=== PATIENT | female | born 1995 | race Caucasian/White ===

== ENCOUNTER 2017-02-22 18:02 | Emergency (ER) | payer OTHER ==
[2017-02-22 18:11] VITALS: BP 114/63
--- NOTE | 2017-02-22 18:56 | RAD ---
INDICATION: 2 weeks of persistent cough. COMPARISON: There are no prior studies available for comparison. TECHNIQUE: Dual-energy PA and lateral views of the chest were obtained. FINDINGS: The heart is within normal limits in size. Mediastinal and hilar contours appear within normal limits. The lungs are clear. No pleural effusion is present. IMPRESSION: NO EVIDENCE FOR ACTIVE CARDIOPULMONARY DISEASE.
--- NOTE | 2017-02-22 19:16 | UC ---
Respiratory Complaint HPI - HPI Summary HPI Summary: TWO WEEKS OF COUGH AND CHEST CONGESTION. INTERMITTENT LOW GRADE FEVER. HISTORY OF PNEUMONIA. NO CHEST PAIN. NO RECENT TRAVEL. NONSMOKER. NO ORAL CONTRACEPTION. - History of Current Complaint Chief Complaint: UCRespiratory Stated Complaint: COUGH Time Seen by Provider: 02/22/17 18:22 Hx Obtained From: Patient Hx Last Menstrual Period: one week ago Onset/Duration: Gradual Onset, Lasting Weeks, Still Present Timing: Intermittent Episodes Severity Initially: Mild Severity Currently: Mild Character: Cough: Nonproductive Associated Signs And Symptoms: Positive: Fever, URI. Negative: Chills, Wheezing , Hemoptysis, Dizziness, Calf Pain, Calf Swelling, Nasal Congestion, Hoarseness , Sinus Discomfort - Risk Factors Cardiac Risk Factors: Negative Pseudomonas Risk Factors: Negative Tuberculosis Risk Factors: Negative - Allergies/Home Medications Allergies/Adverse Reactions: Allergies Allergy/AdvReac Type Severity Reaction Status Date / Time Amoxicillin [From Augmentin] Allergy Anaphylatic Verified 02/22/17 18:12 Shock Clavulanic Acid Allergy Anaphylatic Verified 02/22/17 18:12 [From Augmentin] Shock Hydrocodone Allergy Hives Verified 02/22/17 18:12 Morphine Allergy Vomiting Verified 02/22/17 18:12 Oxycodone Allergy Hives Verified 02/22/17 18:13 amoxicillin Allergy Anaphylatic Uncoded 02/22/17 18:12 Shock Home Medications: Home Medications Norethindrone & Eth Estradiol [Ortho-Novum ] 02/22/17 [History] PMH/Surg Hx/FS Hx/Imm Hx Previously Healthy: Yes - Surgical History Surgical History: Yes Surgery Procedure, Year, and Place: ACL Right knee. [place] teeth. Ear tubes - Family History Known Family History: Negative: Respiratory Disease - Social History Occupation: Student Lives: With Family Alcohol Use: Occasionally Substance Use Type: None Smoking Status (MU): Never Smoked Tobacco Review of Systems Constitutional: Negative Skin: Negative Eyes: Negative ENT: Negative Respiratory: Cough Cardiovascular: Negative Gastrointestinal: Negative Genitourinary: Negative Motor: Negative Neurovascular: Negative Musculoskeletal: Negative Neurological: Negative Psychological: Negative All Other Systems Reviewed And Are Negative: Yes Physical Exam Triage Information Reviewed: Yes Appearance: Well-Appearing, No Pain Distress, Well-Nourished Vital Signs: Initial Vital Signs Temp 98.0 F 02/22/17 18:07 Pulse 68 02/22/17 18:07 Resp 12 02/22/17 18:07 BP 114/63 02/22/17 18:07 Pulse Ox 99 02/22/17 18:07 Vital Signs Reviewed: Yes Eye Exam: Normal ENT Exam: Normal ENT: Positive: Normal ENT inspection, Hearing grossly normal, TMs normal Dental Exam: Normal Neck exam: Normal Neck: Positive: Supple, Nontender Respiratory Exam: Other - COUGH Respiratory: Positive: Chest non-tender, Lungs clear, Normal breath sounds, No respiratory distress, No accessory muscle use Cardiovascular Exam: Normal Cardiovascular: Positive: RRR, No Murmur Abdominal Exam: Normal Abdomen Description: Positive: Nontender, No Organomegaly Musculoskeletal Exam: Normal Neurological Exam: Normal Psychological Exam: Normal Skin Exam: Normal UC Diagnostic Evaluation - Laboratory O2 Sat by Pulse Oximetry: 99 Respiratory Course/Dx - Differential Dx/Diagnosis Differential Diagnosis/HQI/PQRI: Bronchitis, Laryngitis, Sinusitis Provider Diagnoses: UPPER RESPIRATORY INFECTION Discharge - Discharge Plan Condition: Stable Disposition: HOME Prescriptions: Benzonatate CAP* [Tessalon 100 MG CAP*] 100 mg PO TID PRN #15 cap PRN Reason: Cough Patient Education Materials: Upper Respiratory Infection (ED), Acute Cough (ED) Referrals: [facility] [Outside] [facility] @ [Outside] Additional Instructions: TODAY YOUR CHEST XRAY SHOWED NO ACTIVE DISEASE. PLEASE SEEK EVALUATION AT THE EMERGENCY DEPARTMENT IF YOU DEVELOP CHEST PAIN, CALF PAIN, OR SHORTNESS OF BREATH. PLEASE MONITOR YOUR TEMPERATURES.
== END 2017-02-22 19:15 | disposition home or self-care (01) ==
LOC: UCEAST 18:02
DX: J06.9 Acute upper respiratory infection, unspecified (principal)
CPT/HCPCS: 71020; 99212; G0463

== ENCOUNTER 2017-05-10 16:33 | Emergency (ER) | payer OTHER ==
[2017-05-10] MEDS ORDERED: NS 0.9% 1000 ML* 1,000 ML IV ONE (18:49)
[2017-05-10 19:20] LABS: Hematocrit 40 % (35-47); Hemoglobin 13.5 g/dl (12.0-16.0); Mean Corpuscular HGB Conc 34 g/dl (31-36); Mean Corpuscular Hemoglobin 30 pg (27-31); Mean Corpuscular Volume 88 fL (80-97); Mean Platelet Volume 8 um3 (7.4-10.4); Red Blood Count 4.48 10^6/ul (4.0-5.4); Red Cell Distribution Width 13 % (10.5-15); White Blood Count 8.8 10^3/ul (3.5-10.8)
[2017-05-10 19:35] LABS: ALT 14 U/L (7-52); AST 22 U/L (13-39); Albumin 4.1 g/dL (3.2-5.2); Alkaline Phosphatase 51 U/L (34-104); Anion Gap 7 mmol/L (2-11); BUN/Creatinine Ratio 17.9 (8-20); Blood Urea Nitrogen 14 mg/dL (6-24); C Reactive Protein < 1.00 mg/L (< 5.00); CO2 Carbon Dioxide 25 mmol/L (22-32); Calcium 9.2 mg/dL (8.6-10.3); Chloride 104 mmol/L (101-111); EGFR African American 121.1 (>60); EGFR Non-African American 94.2 (>60); Glucose 89 mg/dL (70-100); Lipase 16 U/L (11.0-82.0); Potassium 3.7 mmol/L (3.5-5.0); Sodium 136 mmol/L (133-145); Total Protein 7.1 g/dL (6.4-8.9)
[2017-05-10] MEDS ORDERED: Iohexol 300* (CONTRAST) 10 ML SDV IV ONE (23:48)
[2017-05-11 00:15] LABS: Urine Bilirubin Negative (Negative); Urine Glucose Negative (Negative); Urine Nitrite Negative (Negative)
[2017-05-11 03:02] VITALS: BP 118/65
--- NOTE | 2017-05-11 03:53 | ED ---
Estela Dejesus Rebecca, scribed for Cierra Rangeluel on 05/11/17 at 0045 . Abdominal Pain/Female - HPI Summary HPI Summary: Pt is a 22 y/o F who presents to ED c/o abdominal pain. Pain began last night and is discrete to the RLQ without radiation. Pain is currently moderate, ranked 4/10. Sx aggravated and alleviated by nothing. Additionally c/o nausea, diarrhea, vaginal discharge and low-grade fever, last night. Denies vomiting and vaginal bleeding. - History of Current Complaint Chief Complaint: EDAbdPain Stated Complaint: RT SIDED ABD PAIN/NAUSEA Time Seen by Provider: 05/10/17 19:32 Hx Obtained From: Patient Hx Last Menstrual Period: one week ago Onset/Duration: Lasting Days - Started last night, Still Present Severity Currently: Moderate Pain Intensity: 4 Pain Scale Used: 0-10 Numeric Location: Discrete At: RLQ Aggravating Factor(s): Nothing Alleviating Factor(s): Nothing Associated Signs and Symptoms: Positive: Fever - low-grade, Nausea, Diarrhea. Negative: Vaginal Bleeding, Vomiting Allergies/Adverse Reactions: Allergies Allergy/AdvReac Type Severity Reaction Status Date / Time Amoxicillin [From Augmentin] Allergy Anaphylatic Verified 05/10/17 16:51 Shock Clavulanic Acid Allergy Anaphylatic Verified 05/10/17 16:51 [From Augmentin] Shock Hydrocodone Allergy Hives Verified 05/10/17 16:51 Morphine Allergy Vomiting Verified 05/10/17 16:51 Oxycodone Allergy Hives Verified 05/10/17 16:51 amoxicillin Allergy Anaphylatic Uncoded 02/22/17 18:12 Shock PMH/Surg Hx/FS Hx/Imm Hx Endocrine/Hematology History: Denies: Hx Diabetes Cardiovascular History: Denies: Hx Hypertension Respiratory History: Reports: Other Respiratory Problems/Disorders - HX PNEUMONIA - Surgical History Surgery Procedure, Year, and Place: ACL Right knee. [place] teeth. Ear tubes Infectious Disease History: No Infectious Disease History: Denies: Traveled Outside the [place] in Last 30 Days - Family History Known Family History: Negative: Respiratory Disease - Social History Alcohol Use: Occasionally Substance Use Type: Reports: None Smoking Status (MU): Never Smoked Tobacco Review of Systems Positive: Fever - Low-grade Positive: Abdominal Pain - RLQ, Diarrhea, Nausea. Negative: Vomiting Positive: discharge - Vaginal, other - NEGATIVE: Vaginal bleeding All Other Systems Reviewed And Are Negative: Yes Physical Exam - Summary Physical Exam Summary: Appearance: Well appearing, no pain distress Skin: warm, dry, reflects adequate perfusion Head/face: normal Eyes: EOMI, MARISSA ENT: normal Neck: supple, nontender Respiratory: CTA, breath sounds present Cardiovascular: RRR, pulses symmetrical Abdomen: tenderness in the RLQ, soft Bowel: present Musculoskeletal: normal, strength/ROM intact Neuro: normal, sensory motor intact, A&Ox3 Triage Information Reviewed: Yes Vital Signs On Initial Exam: Initial Vitals Temp Pulse Resp BP Pulse Ox 97.8 F 84 18 123/71 100 05/10/17 16:35 05/10/17 16:35 05/10/17 16:35 05/10/17 16:35 05/10/17 16:35 Vital Signs Reviewed: Yes - [place] Coma Scale Coma Scale Total: 15 Diagnostics - Vital Signs Vital Signs Temp Pulse Resp BP Pulse Ox 05/10/17 18:35 98.3 F 93 16 133/93 100 05/10/17 16:35 97.8 F 84 18 123/71 100 - Laboratory Lab Results: Lab Results 05/10/17 05/10/17 05/10/17 Range/Units 19:10 19:10 19:10 WBC 8.8 (3.5-10.8) 10^3/ul RBC 4.48 (4.0-5.4) 10^6/ul Hgb 13.5 (12.0-16.0) g/dl Hct 40 (35-47) % MCV 88 (80-97) fL MCH 30 (27-31) pg MCHC 34 (31-36) g/dl RDW 13 (10.5-15) % Plt Count 208 (150-450) 10^3/ul MPV 8 (7.4-10.4) um3 Neut % (Auto) 70.3 (38-83) % Lymph % (Auto) 21.0 L (25-47) % [place] % (Auto) 7.3 (1-9) % Eos % (Auto) 1.2 (0-6) % Baso % (Auto) 0.2 (0-2) % Absolute Neuts (auto) 6.2 (1.5-7.7) 10^3/ul Absolute Lymphs (auto) 1.8 (1.0-4.8) 10^3/ul Absolute Monos (auto) 0.6 (0-0.8) 10^3/ul Absolute Eos (auto) 0.1 (0-0.6) 10^3/ul Absolute Basos (auto) 0 (0-0.2) 10^3/ul Absolute Nucleated RBC 0 10^3/ul Nucleated RBC % 0 Sodium 136 (133-145) mmol/L Potassium 3.7 (3.5-5.0) mmol/L Chloride 104 (101-111) mmol/L Carbon Dioxide 25 (22-32) mmol/L Anion Gap 7 (2-11) mmol/L BUN 14 (6-24) mg/dL Creatinine 0.78 (0.51-0.95) mg/dL Est GFR ( Amer) 121.1 (>60) Est GFR (Non-Af Amer) 94.2 (>60) BUN/Creatinine Ratio 17.9 (8-20) Glucose 89 (70-100) mg/dL Lactic Acid 0.7 (0.5-2.0) mmol/L Calcium 9.2 (8.6-10.3) mg/dL Total Bilirubin 0.50 (0.2-1.0) mg/dL AST 22 (13-39) U/L ALT 14 (7-52) U/L Alkaline Phosphatase 51 (34-104) U/L C-Reactive Protein < 1.00 (< 5.00) mg/L Total Protein 7.1 (6.4-8.9) g/dL Albumin 4.1 (3.2-5.2) g/dL Globulin 3.0 (2-4) g/dL Albumin/Globulin Ratio 1.4 (1-3) Lipase 16 (11.0-82.0) U/L Beta HCG, Quant < 0.60 mIU/mL Result Diagrams: 05/10/17 19:10 05/10/17 19:10 Lab Statement: Any lab studies that have been ordered have been reviewed, and results considered in the medical decision making process. - CT CT Abd/Pel CT Interpretation Completed By: Radiologist - 3.4 cm right ovarian cyst. Small physiologic free fluid cul-de-sac. No bowel obstruction, colitis, or suresh air. Normal appendix filled with air. Unremarkable pancreas, kidneys and gallbladder. ED phsyician reviewed radiology report and agrees. - Ultrasound No standard instances Ultrasound Interpretation Completed By: Radiologist - Pelvis: No ovarian tosion. Color flow with appropriate arterial and venous waveforms. 3.3 cm right ovarian cyst. Small phsyiologic free fluid cul-de-sac. Normal uterus. Endometrial stripe complex 8 mm thick. ED phsyician reviewed radiology report and agrees. Re-Evaluation - Re-Evaluation First Eval Re-Evaluation Time: 01:11 Comment: Discussed CT results with the pt. Second Eval Re-Evaluation Time: 02:40 Change: Improved Comment: Discussed US results and D/C plan. Pt is feeling much better. Abdominal Pain Fem Course/Dx - Course Course Of Treatment: Pt is a 22 y/o F who presents to ED c/o abdominal pain. Pain began last night and is discrete to the RLQ without radiation. Pain is currently moderate, ranked 4/10. Sx aggravated and alleviated by nothing. Additionally c/o nausea, diarrhea, vaginal discharge and low-grade fever, last night. Denies vomiting and vaginal bleeding. UA negative for UTI. CT Abd/Pel and Pelvic US reveal an ovarian cyst. In the ED course, pt received fluids which improved sx. Pt will be D/C to home with Dx of ovarian cyst and abdominal pain with Rx for Naproxem and a follow up with her PCP and [facility]. She understands and agrees. Allergies noted. Pt medications reviewed. - Diagnoses Provider Diagnoses: Abdominal pain, Ovarian cyst Discharge - Discharge Plan Condition: Stable Disposition: HOME Prescriptions: Naproxen [Naproxen 500 mg] 500 mg PO Q8H PRN #20 tab MDD 3 PRN Reason: Pain Patient Education Materials: Ovarian Cyst (ED), Acute Abdominal Pain (ED) Referrals: [facility] [Primary Care Provider] - Tr Contreras MD [Medical Doctor] - 3 Days The documentation as recorded by the Estela lozano Rebecca accurately reflects the service I personally performed and the decisions made by me, Nicola Rangel.
--- NOTE | 2017-05-11 07:51 | RAD ---
CLINICAL HISTORY: Right lower quadrant pain COMPARISON: None TECHNIQUE: Multiple contiguous axial CT scans were obtained of the abdomen and pelvis after the administration of intravenous contrast. Coronal and sagittal multiplanar reformations are submitted for review. Oral contrast was administered. Delayed images were obtained through the abdomen and pelvis. FINDINGS: LUNG BASES: The lung bases are clear. LIVER: The liver is normal in shape, size, contour, and attenuation. BILE DUCTS: There is no intrahepatic or extrahepatic biliary dilatation. GALLBLADDER: The gallbladder is normal, without pericholecystic inflammatory change. PANCREAS: The pancreas is normal, without mass or ductal dilatation. SPLEEN: Normal in size and appearance. UPPER GI TRACT: Evaluation of the gastrointestinal tract is limited by incomplete gastric distention. The upper GI tract is unremarkable. SMALL BOWEL AND MESENTERY: The small bowel is normal in contour, course, and caliber. There is no obstruction or dilatation. COLON: The colon is normal in contour, course, caliber. There is no pericolonic inflammatory change. There is a tubular, vermiform, hollow viscus that is blind ending, and originates from the cecum, consistent with a normal appendix. There is no periappendiceal inflammatory change. This is best seen on coronal images 32 through 37 ADRENALS: Normal bilaterally. KIDNEYS: The kidneys are normal in shape, size, contour, and axis. There is no hydronephrosis or nephrolithiasis. BLADDER: The bladder is smooth in contour. PELVIC ORGANS: There is a 3.4 cm right ovarian cyst. There is a small free fluid within the pelvis. This may BE physiologic within a relatively female. AORTA: The aorta is normal. IVC: Unremarkable LYMPH NODES: There is no lymphadenopathy by size criteria. ABDOMINAL WALL: There is no evidence for abdominal wall hernia. BONES AND SOFT TISSUES: Incidentally noted is a limbus vertebral body of L3. OTHER: None IMPRESSION: 1. NORMAL APPENDIX. 2. 3.4 CM RIGHT OVARIAN CYST.
--- NOTE | 2017-05-11 08:38 | RAD ---
HISTORY: Right sided pain, rule out torsion COMPARISONS: None TECHNIQUE: Multiple transverse and longitudinal ultrasound images were obtained of the pelvis using grayscale, color Doppler, and spectral Doppler imaging using the transabdominal transducer. FINDINGS: UTERUS: The uterus measures 7.9 x 3.5 x 4.6 cm. The uterus is normal in shape, size, contour, and echotexture. ENDOMETRIUM: The endometrial stripe is smooth. The endometrium measures 0.8 cm in thickness. CUL-DE-SAC: There is no free fluid within the cul-de-sac. RIGHT OVARY: The right ovary measures 4.2 x 2.3 x 4.4 cm. There is a 3.2 x 3.3 x 2 cm simple right ovarian cyst . Normal arterial and venous waveforms are identifiable within the ovary on spectral Doppler imaging. LEFT OVARY: The left ovary measures 4.3 x 2 x 2.6 cm. Normal arterial and venous waveforms are identifiable within the ovary on spectral Doppler imaging. BLADDER: The visualized bladder is unremarkable. OTHER: None IMPRESSION: 1. NO SONOGRAPHIC FEATURES OF TORSION. PLEASE NOTE THAT PARTIAL OR INTERMITTENT TORSION MAY BE SONOGRAPHICALLY NORMAL. 2. 3.3 CENTIMETER SIMPLE RIGHT OVARIAN CYST.
== END 2017-05-11 03:05 | disposition home or self-care (01) ==
LOC: ED 16:33
DX: R10.31 Right lower quadrant pain (principal); N83.291 Other ovarian cyst, right side; Z88.5 Allergy status to narcotic agent; Z88.0 Allergy status to penicillin
CPT/HCPCS: 36415; 74177; 76856; 80053; 81003; 83605; 83690; 84702; 85025; 86140; Q9967

== ENCOUNTER 2017-07-07 10:18 | Emergency (ER) | payer BC, OTHER ==
[2017-07-07 10:27] VITALS: BP 130/70
--- NOTE | 2017-07-07 10:50 | ED ---
Throat Pain/Nasal Congestion - HPI Summary HPI Summary: 22F presents with swelling around right eye from fall on Friday. She states she feel off her boyfriends back and landed on her face on the concerte. She states that if she looks a certain way she has double vision. She is not on blood thinners. She has full ROM of eyes. She denies any blood from nares. She has moderate headache that is improved with advil. She admits to nausea but denies any vomiting. She denies any LOC but says that she saw stars. She admits to dizziness. She has been feeling tired. She states sometimes she gets tingling near right eye. She admits to photophobia and some difficulty concentrating. She was sent by [facility] for imaging of face. She had a few drinks when this occurred. - History of Current Complaint Chief Complaint: EDEyeProblem Time Seen by Provider: 07/07/17 10:27 - Allergies/Home Medications Allergies/Adverse Reactions: Allergies Allergy/AdvReac Type Severity Reaction Status Date / Time Amoxicillin [From Augmentin] Allergy Anaphylatic Verified 05/10/17 16:51 Shock Clavulanic Acid Allergy Anaphylatic Verified 05/10/17 16:51 [From Augmentin] Shock Hydrocodone Allergy Hives Verified 05/10/17 16:51 Morphine Allergy Vomiting Verified 05/10/17 16:51 Oxycodone Allergy Hives Verified 05/10/17 16:51 amoxicillin Allergy Anaphylatic Uncoded 02/22/17 18:12 Shock PMH/Surg Hx/FS Hx/Imm Hx Endocrine/Hematology History: Denies: Hx Diabetes Cardiovascular History: Denies: Hx Hypertension Respiratory History: Reports: Other Respiratory Problems/Disorders - HX PNEUMONIA History: Denies: Hx Dialysis, Hx Renal Disease - Surgical History Surgery Procedure, Year, and Place: ACL Right knee. [place] teeth. Ear tubes Infectious Disease History: No Infectious Disease History: Denies: Traveled Outside the [place] in Last 30 Days - Family History Known Family History: Negative: Respiratory Disease - Social History Alcohol Use: Occasionally Substance Use Type: Reports: None Smoking Status (MU): Never Smoked Tobacco Review of Systems Negative: Fever Negative: Chest Pain Negative: Shortness Of Breath Positive: Nausea Positive: Bruising Positive: Headache All Other Systems Reviewed And Are Negative: Yes Physical Exam Triage Information Reviewed: Yes Vital Signs On Initial Exam: Initial Vitals Temp Pulse Resp BP Pulse Ox 97.8 F 60 16 130/70 98 07/07/17 10:23 07/07/17 10:23 07/07/17 10:23 07/07/17 10:23 07/07/17 10:23 Vital Signs Reviewed: Yes Appearance: Positive: Well-Appearing Skin: Positive: Warm, Dry Head/Face: Positive: Other - ecchymosis around right eye, no step off, rivera sign Eyes: Positive: Normal, EOMI, MARISSA, Conjunctiva Clear ENT: Positive: Normal ENT inspection, Pharynx normal, TMs normal Respiratory/Lung Sounds: Positive: Clear to Auscultation, Breath Sounds Present Cardiovascular: Positive: Normal, RRR Abdomen Description: Positive: Nontender, Soft Bowel Sounds: Positive: Present Neurological: Positive: Sensory/Motor Intact, Alert, Oriented to Person Place, Time, CN Intact II-III, Heel to Toe, Finger to Nose, Other - rapid alternating movements intact Psychiatric: Positive: Normal Diagnostics - Vital Signs Vital Signs Temp Pulse Resp BP Pulse Ox 07/07/17 10:23 97.8 F 60 16 130/70 98 - Laboratory Lab Statement: Any lab studies that have been ordered have been reviewed, and results considered in the medical decision making process. - CT brain CT Interpretation: No Acute Changes CT Interpretation Completed By: Radiologist maxillaryfacial CT Interpretation: No Acute Changes CT Interpretation Completed By: Radiologist EENT Course/Dx - Course Course Of Treatment: 22F presents with swelling around right eye from fall on Friday. She states she feel off her boyfriends back and landed on her face on the concerte. She states that if she looks a certain way she has double vision. She is not on blood thinners. She has full ROM of eyes. She denies any blood from nares. She has moderate headache that is improved with advil. She admits to nausea but denies any vomiting. She denies any LOC but says that she saw stars. She admits to dizziness. She has been feeling tired. She states sometimes she gets tingling near right eye. She admits to photophobia and some difficulty concentrating. She was sent by for imaging of face. She had a few drinks when this occurred. on exam ecchyomosis around right eye. no step off, normal neuro exam. CT brain and face normal. will discharge with follow up with IC as likely has concussion. patient understand and agrees with plan. - Differential Diagnoses Differential Diagnoses: Other - concussion, orbit fracture, contusion - Diagnoses Provider Diagnoses: Head injury, Facial contusion Discharge - Discharge Plan Condition: Good Disposition: HOME Patient Education Materials: Concussion (ED), Facial Contusion (ED) Referrals: [facility] [Primary Care Provider] - Additional Instructions: Place ice on area as needed Take Tylenol or ibuprofen for headache every 6 hours Follow up with IC within 5 days Return to ED if develop vomiting, severe headache, or any new or worsening symptoms
--- NOTE | 2017-07-07 11:18 | RAD ---
HISTORY: Right facial injury, head injury COMPARISONS: None TECHNIQUE: Multiple contiguous axial CT scans were obtained of the head without intravenous contrast. FINDINGS: HEMORRHAGE/INFARCT: There is no hemorrhage or acute infarct. MASSES/SHIFT: There is no mass or shift. EXTRA-AXIAL SPACES: There are no extra-axial fluid collections. SULCI AND VENTRICLES: The sulci and ventricles are normal in size and position for the patient's stated age. CEREBRUM: There are no focal parenchymal abnormalities. BRAINSTEM: There are no focal parenchymal abnormalities. CEREBELLUM: There are no focal parenchymal abnormalities. VESSELS: The vessels are grossly normal. PARANASAL SINUSES: The paranasal sinuses are clear. ORBITS: The orbits are unremarkable. BONES AND SOFT TISSUE: No bone or soft tissue abnormalities are noted. OTHER: None IMPRESSION: NO ACUTE INTRACRANIAL PATHOLOGY.
--- NOTE | 2017-07-07 11:26 | RAD ---
HISTORY: Right-sided facial injury COMPARISONS: None TECHNIQUE: Multiple contiguous axial CT scans were obtained of the face without intravenous contrast, with coronal and sagittal multiplanar reformations. FINDINGS: BONES: There is no displaced fracture or dislocation. The orbital rim is intact. The zygomatic arch is intact. The pterygoid plates are intact. ORBITS: The globes are round. The optic nerves are symmetric. The extraocular musculature is normal. There is no post septal or intraconal inflammatory change. There is no retrobulbar hematoma. PARANASAL SINUSES: The paranasal sinuses are clear. BRAIN AND SOFT TISSUE: Metallic jewelry is noted in relation to the right naris. OTHER: None. IMPRESSION: NO FACIAL FRACTURE
== END 2017-07-07 12:43 | disposition home or self-care (01) ==
LOC: ED 10:18
DX: S09.90XA Unspecified injury of head, initial encounter (principal); S00.83XA Contusion of other part of head, initial encounter; W19.XXXA Unspecified fall, initial encounter; Y93.9 Activity, unspecified; Y92.9 Unspecified place or not applicable
CPT/HCPCS: 70450; 70486; 99282

== ENCOUNTER 2017-08-30 18:15 | Emergency (ER) | payer BC ==
[2017-08-30 20:29] LABS: ABS Basophils 0 10^3/ul (0-0.2); ABS Eosinophils 0.1 10^3/ul (0-0.6); ABS Lymphocytes 1.7 10^3/ul (1.0-4.8); ABS Monocytes 0.6 10^3/ul (0-0.8); ABS Neutrophils 6.6 10^3/ul (1.5-7.7); ABS Nucleated RBC 0 10^3/ul; Eosinophil % 1.3 % (0-6); Hematocrit 41 % (35-47); Hemoglobin 14.1 g/dl (12.0-16.0); Lymphocyte % 18.8 % (25-47); Mean Corpuscular HGB Conc 34 g/dl (31-36); Mean Corpuscular Hemoglobin 30 pg (27-31); Mean Corpuscular Volume 87 fL (80-97); Mean Platelet Volume 9 um3 (7.4-10.4); Nucleated Red Blood Cells % 0.1; Platelet Count 210 10^3/ul (150-450); Red Blood Count 4.68 10^6/ul (4.0-5.4); Red Cell Distribution Width 13 % (10.5-15)
[2017-08-30 20:36] LABS: Urine Appearance Clear; Urine Blood Negative (Negative); Urine Color Yellow; Urine Ketones Negative (Negative); Urine Protein Negative (Negative); Urine Specific Gravity 1.015 (1.010-1.030); Urine Urobilinogen Negative (Negative)
[2017-08-30 20:47] LABS: INR 0.9 (0.77-1.02)
[2017-08-30 20:48] LABS: EGFR Non-African American 88.9 (>60)
--- NOTE | 2017-08-30 20:48 | RAD ---
HISTORY: Head injury 2 months ago, personality changes COMPARISONS: None TECHNIQUE: Multiple contiguous axial CT scans were obtained of the head without intravenous contrast. FINDINGS: HEMORRHAGE/INFARCT: There is no hemorrhage or acute infarct. MASSES/SHIFT: There is no mass or shift. EXTRA-AXIAL SPACES: There are no extra-axial fluid collections. SULCI AND VENTRICLES: The sulci and ventricles are normal in size and position for the patient's stated age. CEREBRUM: There are no focal parenchymal abnormalities. BRAINSTEM: There are no focal parenchymal abnormalities. CEREBELLUM: There are no focal parenchymal abnormalities. VESSELS: The vessels are grossly normal. PARANASAL SINUSES: The paranasal sinuses are clear. ORBITS: The orbits are unremarkable. BONES AND SOFT TISSUE: No bone or soft tissue abnormalities are noted. OTHER: None IMPRESSION: NO ACUTE INTRACRANIAL PATHOLOGY.
[2017-08-30 23:03] VITALS: BP 132/77
--- NOTE | 2017-08-31 05:42 | ED ---
Manuel Dejesus Tecjoon, scribed for Melvin Buck MD on 08/30/17 at 1926 . Psychiatric Complaint - HPI Summary HPI Summary: This patient is a 22 year old female presenting to [facility] accompanied by sales coach with a chief complaint of SI since today. Patient states that she suffered head trauma and a concussion on Jul 06. Patient states that pain remains in right side of head. During the incident, she suffered LOC, headache, vomiting, dizziness. Afterwards, she had memory loss and speech problems. During and after recovery, patient states she has not been feeling right ever since and has had severe mood swings. Patient states she has been feeling hopeless and depressed for the past 2 weeks and had SI today. The pain is rated 6/10 in severity. Symptoms aggravated by nothing. Symptoms alleviated by nothing. Patient denies a plan. - History Of Current Complaint Chief Complaint: EDMentalHealth Time Seen by Provider: 08/30/17 18:55 Hx Obtained From: Patient Hx Last Menstrual Period: 1 month ago Onset/Duration: Sudden Onset, Lasting Weeks - 2 weeks, Still Present, Worse Since - today Timing: Constant Severity Initially: Moderate Severity Currently: Moderate Character: Depressed Aggravating Factor(s): Nothing Alleviating Factor(s): Nothing Has Suicidal: Reports: Thoughts. Denies: With A Plan - Allergies/Home Medications Allergies/Adverse Reactions: Allergies Allergy/AdvReac Type Severity Reaction Status Date / Time Amoxicillin [From Augmentin] Allergy Anaphylatic Verified 05/10/17 16:51 Shock Clavulanic Acid Allergy Anaphylatic Verified 05/10/17 16:51 [From Augmentin] Shock Hydrocodone Allergy Hives Verified 05/10/17 16:51 Morphine Allergy Vomiting Verified 05/10/17 16:51 Oxycodone Allergy Hives Verified 05/10/17 16:51 amoxicillin Allergy Anaphylatic Uncoded 02/22/17 18:12 Shock PMH/Surg Hx/FS Hx/Imm Hx Previously Healthy: Yes Endocrine/Hematology History: Denies: Hx Diabetes Cardiovascular History: Denies: Hx Hypertension Respiratory History: Reports: Other Respiratory Problems/Disorders - HX PNEUMONIA History: Denies: Hx Dialysis, Hx Renal Disease Opthamlomology History: Denies: Hx Legally Blind EENT History: Denies: Hx Deafness - Surgical History Surgery Procedure, Year, and Place: ACL Right knee. [place] teeth. Ear tubes Infectious Disease History: No Infectious Disease History: Denies: Traveled Outside the [place] in Last 30 Days - Family History Known Family History: Negative: Respiratory Disease - Social History Occupation: Student Alcohol Use: Occasionally Hx Substance Use: No Substance Use Type: Reports: None Hx Tobacco Use: No Smoking Status (MU): Never Smoked Tobacco Review of Systems Negative: Fever Neurological: Other - dizziness Positive: Headache, Slurred Speech Positive: Depressed, Other - mood swings All Other Systems Reviewed And Are Negative: Yes Physical Exam - Summary Physical Exam Summary: Appearance: Well appearing, no pain distress Skin: warm, dry, reflects adequate perfusion Head/face: Tenderness in right maxillary area and front forehead without bruising. Eyes: EOMI, MARISSA ENT: normal Neck: supple, non-tender Respiratory: CTA, breath sounds present Cardiovascular: RRR, pulses symmetrical Abdomen: non-tender, soft Bowel: present Musculoskeletal: normal, strength/ROM intact Neuro: normal, sensory motor intact, A&Ox3 Psych: no SI/HI, normal affect Triage Information Reviewed: Yes Vital Signs On Initial Exam: Initial Vitals Temp Pulse Resp BP Pulse Ox 99.1 F 91 19 130/74 98 08/30/17 18:39 08/30/17 18:39 08/30/17 18:39 08/30/17 18:39 08/30/17 18:39 Vital Signs Reviewed: Yes Diagnostics - Vital Signs Vital Signs Temp Pulse Resp BP Pulse Ox 08/30/17 18:39 99.1 F 91 19 130/74 98 - Laboratory Lab Results: Lab Results 08/30/17 08/30/17 08/30/17 Range/Units 20:08 20:08 20:08 WBC 9.0 (3.5-10.8) 10^3/ul RBC 4.68 (4.0-5.4) 10^6/ul Hgb 14.1 (12.0-16.0) g/dl Hct 41 (35-47) % MCV 87 (80-97) fL MCH 30 (27-31) pg MCHC 34 (31-36) g/dl RDW 13 (10.5-15) % Plt Count 210 (150-450) 10^3/ul MPV 9 (7.4-10.4) um3 Neut % (Auto) 73.1 (38-83) % Lymph % (Auto) 18.8 L (25-47) % [place] % (Auto) 6.6 (1-9) % Eos % (Auto) 1.3 (0-6) % Baso % (Auto) 0.2 (0-2) % Absolute Neuts (auto) 6.6 (1.5-7.7) 10^3/ul Absolute Lymphs (auto) 1.7 (1.0-4.8) 10^3/ul Absolute Monos (auto) 0.6 (0-0.8) 10^3/ul Absolute Eos (auto) 0.1 (0-0.6) 10^3/ul Absolute Basos (auto) 0 (0-0.2) 10^3/ul Absolute Nucleated RBC 0 10^3/ul Nucleated RBC % 0.1 INR (Anticoag Therapy) 0.90 (0.77-1.02) APTT 27.2 (26.0-36.3) seconds Sodium 137 (133-145) mmol/L Potassium 3.6 (3.5-5.0) mmol/L Chloride 104 (101-111) mmol/L Carbon Dioxide 25 (22-32) mmol/L Anion Gap 8 (2-11) mmol/L BUN 14 (6-24) mg/dL Creatinine 0.82 (0.51-0.95) mg/dL Est GFR ( Amer) 114.3 (>60) Est GFR (Non-Af Amer) 88.9 (>60) BUN/Creatinine Ratio 17.1 (8-20) Glucose 82 (70-100) mg/dL Lactic Acid (0.5-2.0) mmol/L Calcium 9.6 (8.6-10.3) mg/dL Total Bilirubin 0.40 (0.2-1.0) mg/dL AST 17 (13-39) U/L ALT 10 (7-52) U/L Alkaline Phosphatase 56 (34-104) U/L Total Protein 7.3 (6.4-8.9) g/dL Albumin 4.2 (3.2-5.2) g/dL Globulin 3.1 (2-4) g/dL Albumin/Globulin Ratio 1.4 (1-3) TSH 2.14 (0.34-5.60) mcIU/mL Beta HCG, Quant < 0.60 mIU/mL Urine Color Urine Appearance Urine pH (5-9) Ur Specific [place] (1.010-1.030) Urine Protein (Negative) Urine Ketones (Negative) Urine Blood (Negative) Urine Nitrate (Negative) Urine Bilirubin (Negative) Urine Urobilinogen (Negative) Ur Leukocyte Esterase (Negative) Urine WBC (Auto) (Absent) Urine RBC (Auto) (Absent) Ur Squamous Epith Cells (Absent) Urine Bacteria (Absent) Urine Glucose (Negative) Salicylates < 2.50 (<30) mg/dL Urine Opiates Screen (None Detect) Acetaminophen < 15 mcg/mL Ur Barbiturates Screen (None Detect) Ur Phencyclidine Scrn (None Detect) Ur Amphetamines Screen (None Detect) U Benzodiazepines Scrn (None Detect) Urine Cocaine Screen (None Detect) U Cannabinoids Screen (None Detect) Serum Alcohol < 10 (<10) mg/dL 08/30/17 08/30/17 08/30/17 Range/Units 20:08 20:08 20:08 WBC (3.5-10.8) 10^3/ul RBC (4.0-5.4) 10^6/ul Hgb (12.0-16.0) g/dl Hct (35-47) % MCV (80-97) fL MCH (27-31) pg MCHC (31-36) g/dl RDW (10.5-15) % Plt Count (150-450) 10^3/ul MPV (7.4-10.4) um3 Neut % (Auto) (38-83) % Lymph % (Auto) (25-47) % [place] % (Auto) (1-9) % Eos % (Auto) (0-6) % Baso % (Auto) (0-2) % Absolute Neuts (auto) (1.5-7.7) 10^3/ul Absolute Lymphs (auto) (1.0-4.8) 10^3/ul Absolute Monos (auto) (0-0.8) 10^3/ul Absolute Eos (auto) (0-0.6) 10^3/ul Absolute Basos (auto) (0-0.2) 10^3/ul Absolute Nucleated RBC 10^3/ul Nucleated RBC % INR (Anticoag Therapy) (0.77-1.02) APTT (26.0-36.3) seconds Sodium (133-145) mmol/L Potassium (3.5-5.0) mmol/L Chloride (101-111) mmol/L Carbon Dioxide (22-32) mmol/L Anion Gap (2-11) mmol/L BUN (6-24) mg/dL Creatinine (0.51-0.95) mg/dL Est GFR ( Amer) (>60) Est GFR (Non-Af Amer) (>60) BUN/Creatinine Ratio (8-20) Glucose (70-100) mg/dL Lactic Acid 0.7 (0.5-2.0) mmol/L Calcium (8.6-10.3) mg/dL Total Bilirubin (0.2-1.0) mg/dL AST (13-39) U/L ALT (7-52) U/L Alkaline Phosphatase (34-104) U/L Total Protein (6.4-8.9) g/dL Albumin (3.2-5.2) g/dL Globulin (2-4) g/dL Albumin/Globulin Ratio (1-3) TSH (0.34-5.60) mcIU/mL Beta HCG, Quant mIU/mL Urine Color Yellow Urine Appearance Clear Urine pH 6.0 (5-9) Ur Specific [place] 1.015 (1.010-1.030) Urine Protein Negative (Negative) Urine Ketones Negative (Negative) Urine Blood Negative (Negative) Urine Nitrate Negative (Negative) Urine Bilirubin Negative (Negative) Urine Urobilinogen Negative (Negative) Ur Leukocyte Esterase 2+ H (Negative) Urine WBC (Auto) Trace(0-5/hpf) (Absent) Urine RBC (Auto) Absent (Absent) Ur Squamous Epith Cells Present H (Absent) Urine Bacteria Absent (Absent) Urine Glucose Negative (Negative) Salicylates (<30) mg/dL Urine Opiates Screen None detected (None Detect) Acetaminophen mcg/mL Ur Barbiturates Screen None detected (None Detect) Ur Phencyclidine Scrn None detected (None Detect) Ur Amphetamines Screen None detected (None Detect) U Benzodiazepines Scrn None detected (None Detect) Urine Cocaine Screen None detected (None Detect) U Cannabinoids Screen None detected (None Detect) Serum Alcohol (<10) mg/dL Result Diagrams: 08/30/17 20:08 08/30/17 20:08 Lab Statement: Any lab studies that have been ordered have been reviewed, and results considered in the medical decision making process. Re-Evaluation - Re-Evaluation First Eval Change: Unchanged - stable thru ED stay, contracts for safety Course/Dx - Course Course Of Treatment: Pt with a long and complicated ED course. Given her head injury and resulting mod-severe post concussive syndrome I consulted Neurology Dr Gudino and attempted to obtain MRI brain. MRI was unavailable after discussion with Radiologist. Dr Gudino suggests that the pt needs prompt outpatient evaluation. She underwent psychiatric evaluation and were cleared by psychiatry -- she is johann for safety and not suicidal presently. Her parents are present. Discussed case with Dr Rhiannon Wolf from the hospitalist service who feels there is no grounds for admission medically. Pt is stable. Her worsened depression can certainly be a post-concussive symptom, especially with the frontal impact of the injury. Plan for now is as follows: PCP f/u on Friday with suggestion of prompt MRI. Follow up at the [facility]. Outpatient Neurology follow up, either here or near patient's home in [place]. Parents will take her home from [facility] for now. If she worsens they will take her direct to ED for reevaluation. - Differential Dx/Clinical Impression Differential Diagnosis/HQI/PQRI: Positive: Anxiety, Depression, Suicidal Ideation, Other - TBI/concussion Provider Diagnosis: Post concussive syndrome, Depression - Physician Notifications Discussed Care Of Patient With: Karolyn Gudino - Neurology Time Discussed With Above Provider: 19:27 - We discussed patient care with Dr. Gudino (Neurology) and they recommended admitting the patient for psychiatry and testing her further as inpatient. Instructed by Provider To: Other - We discussed patient care with Dr. Wolf ( Hospitalist) at 2200 and he stated that the patient was not qualified for medical admission. - Critical Care Time Critical Care Time: 30-74 min - CC is exclusive of separately billable procedures Discharge - Discharge Plan Condition: Good Disposition: HOME Prescriptions: Sertraline* [Zoloft*] 25 mg PO BEDTIME #30 tab Patient Education Materials: Suicide Prevention for Adults (ED), Post Concussion Syndrome (ED) [facility] - Additional Instructions: Stop Amytriptlene See Primary Care doctor Friday Recommended is: 1. MRI of the Brain 2. Neurology consultation 3. [facility] Return if worse, new symptoms, feeling you are in crisis, suicidal thoughts or other concerns as discussed. The documentation as recorded by the Manuel lozano Tecjoon accurately reflects the service I personally performed and the decisions made by me, Melvin Buck MD.
== END 2017-08-30 23:04 | disposition home or self-care (01) ==
LOC: ED 18:15
DX: F07.81 Postconcussional syndrome (principal); F32.9 Major depressive disorder, single episode, unspecified; Z88.0 Allergy status to penicillin; Z88.5 Allergy status to narcotic agent
CPT/HCPCS: 36415; 70450; 80053; 80307; 80320; 80329; 81003; 81015; 83605; 84443; 84702; 85025; 85610; 85730; 87086; 99285; G0480